=== PATIENT | male | born 1980 | race Caucasian/White ===

== ENCOUNTER 2016-07-21 13:27 | Emergency (ER) | payer OTHER ==
[2016-07-21 13:42] VITALS: TEMP 97.9
[2016-07-21 14:38] VITALS: RESP 18
[2016-07-21 14:42] LABS: Basophils # (A) 0.1 k/uL (0-0.2); Basophils % (A) 1 %; CH 30.2; CHCM 32.8; Eosinophils % (A) 0 %; HCT 50.2 % (39.0-53.0); HGB 16.4 gm/dL (13.0-17.5); Luc # (Auto) 0.07; Luc % (Auto) 1; Lymphocytes # (A) 0.7 k/uL (1.0-4.8); Lymphocytes % (A) 8 %; MCH 30.2 pg (25.0-35.0); MCHC 32.7 g/dL (31.0-37.0); MCV 92.4 fL (80.0-100.0); Mean Platelet Volume 9.1; Monocytes # (A) 0.4 k/uL (0-1.0); Monocytes % (A) 4 %; Neutrophils # (A) 8.3 k/uL (1.3-7.7); Neutrophils % (A) 87 %; RBC 5.44 m/uL (4.30-5.90); RDW 13.1 % (11.5-15.5); WBC 9.5 k/uL (3.8-10.6)
[2016-07-21 14:52] LABS: ALT 54 U/L (21-72); AST 42 U/L (17-59); Alkaline Phosphatase 58 U/L (38-126); Anion Gap 15 mmol/L; Blood Urea Nitrogen 20 mg/dL (9-20); Calcium 9.1 mg/dL (8.4-10.2); Carbon Dioxide 23 mmol/L (22-30); Chloride 102 mmol/L (98-107); Glucose 264 mg/dL (74-99); Non-African American GFR(MDRD) >60 (>60 ml/min/1.73 sqM); Potassium 4.5 mmol/L (3.5-5.1); Sodium 140 mmol/L (137-145); Total Bilirubin 0.7 mg/dL (0.2-1.3); Total Protein 7.2 g/dL (6.3-8.2)
[2016-07-21 15:05] LABS: Creatine Kinase MB 3.7 ng/mL (0.0-2.4)
--- NOTE | 2016-07-21 15:06 | ED ---
Overdose HPI - General Chief Complaint: Overdose Stated Complaint: overdose Time Seen by Provider: 07/21/16 13:37 Source: patient, EMS Mode of arrival: EMS Limitations: no limitations - History of Present Illness Initial Comments: He injected some heroin today, he also stated that he did some fentanyl, he said he injected back he admits to doing street drugs quite regularly. He said he need some maintenance medications to avoid the withdrawals almost a daily basis he said he was in the kitchen when he felt quite tired is not sure if he passed out according to the EMS his dad gave him some Narcan he denies any injury to his head to his neck or upper or lower extremity or to the back. Denies any headaches no blurred vision no chest pain or shortness of breath no abdominal pain no frequency urgency dysuria, he denies any suicidal or homicidal ideation - Related Data Home Medications Medication Instructions Recorded Confirmed No Known Home Medications [No 02/13/16 07/21/16 Known Home Medications] Allergies Allergy/AdvReac Type Severity Reaction Status Date / Time No Known Allergies Allergy Verified 07/21/16 14:00 Review of Systems ROS Statement: Those systems with pertinent positive or pertinent negative responses have been documented in the HPI. ROS Other: All systems not noted in ROS Statement are negative. Past Medical History Past Medical History: Eye Disorder, Musculoskeletal Disorder Additional Past Medical History / Comment(s): BULGING DISC CERVICAL AREA, CERVICAL PAIN, MILD NT IN HANDS - DAYANA LT., GLASSES TO DRIVE ONLY History of Any Multi-Drug Resistant Organisms: MRSA Date of last positivie culture/infection: 2011 MDRO Source:: RIGHT KNEE Past Surgical History: Orthopedic Surgery Additional Past Surgical History / Comment(s): COSMETIC JAW SURG. Rt Knee SURG D/T MRSA INFECTION. PAIN CLINIC PROC.LAST ONE 05/03/15 Past Anesthesia/Blood Transfusion Reactions: No Reported Reaction, Family History of Problems w/ Anesthesia Additional Past Anesthesia/Blood Transfusion Reaction / Comment(s): MOTHER HAD SOME PROB, AWAKE DURING DENTAL PROC. Past Psychological History: No Psychological Hx Reported Smoking Status: Never smoker Past Alcohol Use History: None Reported Past Drug Use History: Heroin, Prescription Drug Abuse - Past Family History Mother Family Medical History: Hypertension Additional Family Medical History / Comment(s): CROHN'S DISEASE, BIPOLAR Father Family Medical History: Osteoarthritis (OA) Additional Family Medical History / Comment(s): HEART PROBLEMS, HEMOCHROMATOSIS General Exam - General Exam Comments Initial Comments: General: The patient is awake and alert, in no distress, and does not appear acutely ill. Skin: Skin is warm and dry and no rashes or lesions are noted. Eye: Pupils are equal, round and reactive to light, both his pupils are quite small. Ears, nose, mouth and throat: There are moist mucous membranes and no oral lesions. Neck: The neck is supple, there is no tenderness along the cervical spine, palpation of the scalp did not reveal any hematoma or any laceration or any ecchymosis Cardiovascular: There is a regular rate and rhythm. No murmur, rub or gallop is appreciated. Respiratory: To auscultation bilateral, no wheezing no rhonchi no distress respiratory mohan noticed Gastrointestinal: Soft, non-distended, non-tender abdomen without masses or organomegaly noted. There is no rebound or guarding present. Bowel sounds are unremarkable. Back: There is no tenderness to palpation in the midline. There is no obvious deformity. Musculoskeletal: Normal ROM, no tenderness, There is no pedal edema. There is no calf tenderness or swelling. No cords were appreciated. Neurological: CN II-XII intact, Cranial nerves III through XII are intact. There are no obvious motor or sensory deficits. Coordination appears grossly intact. Speech is normal. Psychiatric: Cooperative, appropriate mood & affect, normal judgment, he denies any suicidal or homicidal ideation. Limitations: no limitations Course Vital Signs 07/21/16 07/21/16 13:35 14:36 Temperature 97.9 F Pulse Rate 103 H 93 Respiratory 20 18 Rate Blood Pressure 155/63 123/63 O2 Sat by Pulse 100 99 Oximetry MG is normal sinus rhythm ventricular rate is 94 [place] interval is 158 QRS duration is 92 QT/QTc is 350/437 FC EKG reveals T-wave flattening in lead [address] elevation or ST depression noticed the rest of the leads Admitting him with the family his dad was in coma and now we discussed in length with that he needs to see some addiction services his dad said he is alone is all lined up with the counselor and he is working on it he had a rehab program once in the recent past, education and counseling was done about the disadvantages of drugs and they're risk as far as hepatitis BEC and other other diseases ARE, NOTICED HIS ELEVATED CREATININE AND ELEVATED SUGAR SPOKE WITH HIM AND HIS FAMILY THAT HE NEEDS TO FOLLOW-UP WITH HIS FAMILY DOCTOR TO MAKE SURE his diabetes status and is a kidney functions are checked regularly Medical Decision Making - Lab Data Result diagrams: 07/21/16 13:52 07/21/16 13:52 Lab Results 07/21/16 07/21/16 07/21/16 Range/Units 13:52 13:52 13:52 WBC 9.5 (3.8-10.6) k/uL RBC 5.44 (4.30-5.90) m/uL Hgb 16.4 (13.0-17.5) gm/dL Hct 50.2 (39.0-53.0) % MCV 92.4 (80.0-100.0) fL MCH 30.2 (25.0-35.0) pg MCHC 32.7 (31.0-37.0) g/dL RDW 13.1 (11.5-15.5) % Plt Count 218 (150-450) k/uL Neutrophils % 87 % Lymphocytes % 8 % Monocytes % 4 % Eosinophils % 0 % Basophils % 1 % Neutrophils # 8.3 H (1.3-7.7) k/uL Lymphocytes # 0.7 L (1.0-4.8) k/uL Monocytes # 0.4 (0-1.0) k/uL Eosinophils # 0.0 (0-0.7) k/uL Basophils # 0.1 (0-0.2) k/uL Sodium 140 (137-145) mmol/L Potassium 4.5 (3.5-5.1) mmol/L Chloride 102 (98-107) mmol/L Carbon Dioxide 23 (22-30) mmol/L Anion Gap 15 mmol/L BUN 20 (9-20) mg/dL Creatinine 1.34 H (0.66-1.25) mg/dL Est GFR (MDRD) Af Amer >60 (>60 ml/min/1.73 sqM) Est GFR (MDRD) Non-Af >60 (>60 ml/min/1.73 sqM) Glucose 264 H (74-99) mg/dL Calcium 9.1 (8.4-10.2) mg/dL Total Bilirubin 0.7 (0.2-1.3) mg/dL AST 42 (17-59) U/L ALT 54 (21-72) U/L Alkaline Phosphatase 58 (38-126) U/L Total Creatine Kinase (55-170) U/L CK-MB (CK-2) (0.0-2.4) ng/mL CK-MB (CK-2) Rel Index Total Protein 7.2 (6.3-8.2) g/dL Albumin 4.4 (3.5-5.0) g/dL Urine Opiates Screen Detected H (NotDetected) Ur Oxycodone Screen Not Detected (NotDetected) Urine Methadone Screen Not Detected (NotDetected) Ur Propoxyphene Screen Not Detected (NotDetected) Ur Barbiturates Screen Not Detected (NotDetected) U Tricyclic Antidepress Not Detected (NotDetected) Ur Phencyclidine Scrn Not Detected (NotDetected) Ur Amphetamines Screen Not Detected (NotDetected) U Methamphetamines Scrn Not Detected (NotDetected) U Benzodiazepines Scrn Not Detected (NotDetected) Urine Cocaine Screen Not Detected (NotDetected) U Marijuana (THC) Screen Not Detected (NotDetected) 07/21/16 Range/Units 13:52 WBC (3.8-10.6) k/uL RBC (4.30-5.90) m/uL Hgb (13.0-17.5) gm/dL Hct (39.0-53.0) % MCV (80.0-100.0) fL MCH (25.0-35.0) pg MCHC (31.0-37.0) g/dL RDW (11.5-15.5) % Plt Count (150-450) k/uL Neutrophils % % Lymphocytes % % Monocytes % % Eosinophils % % Basophils % % Neutrophils # (1.3-7.7) k/uL Lymphocytes # (1.0-4.8) k/uL Monocytes # (0-1.0) k/uL Eosinophils # (0-0.7) k/uL Basophils # (0-0.2) k/uL Sodium (137-145) mmol/L Potassium (3.5-5.1) mmol/L Chloride (98-107) mmol/L Carbon Dioxide (22-30) mmol/L Anion Gap mmol/L BUN (9-20) mg/dL Creatinine (0.66-1.25) mg/dL Est GFR (MDRD) Af Amer (>60 ml/min/1.73 sqM) Est GFR (MDRD) Non-Af (>60 ml/min/1.73 sqM) Glucose (74-99) mg/dL Calcium (8.4-10.2) mg/dL Total Bilirubin (0.2-1.3) mg/dL AST (17-59) U/L ALT (21-72) U/L Alkaline Phosphatase (38-126) U/L Total Creatine Kinase 759 H (55-170) U/L CK-MB (CK-2) 3.7 H* (0.0-2.4) ng/mL CK-MB (CK-2) Rel Index 0.5 Total Protein (6.3-8.2) g/dL Albumin (3.5-5.0) g/dL Urine Opiates Screen (NotDetected) Ur Oxycodone Screen (NotDetected) Urine Methadone Screen (NotDetected) Ur Propoxyphene Screen (NotDetected) Ur Barbiturates Screen (NotDetected) U Tricyclic Antidepress (NotDetected) Ur Phencyclidine Scrn (NotDetected) Ur Amphetamines Screen (NotDetected) U Methamphetamines Scrn (NotDetected) U Benzodiazepines Scrn (NotDetected) Urine Cocaine Screen (NotDetected) U Marijuana (THC) Screen (NotDetected) Disposition Clinical Impression: Drug overdose, Recreational drug use Disposition: HOME SELF-CARE Condition: Good Instructions: Adult Overdose (ED) Referrals: Je Bright DO [Primary Care Provider] - 1-2 days
[2016-07-21] MEDS ORDERED: SODIUM CHLORIDE 0.9% 1,000 ML IV STA (15:10)
[2016-07-21 15:45] VITALS: BP 119/79; PULSE 90
== END 2016-07-21 15:45 | disposition home or self-care (01) ==
LOC: EC 13:27
DX: T40.1X1A Poisoning by heroin, accidental (unintentional), initial encounter (principal); T40.4X1A Poisoning by other synthetic narcotics, accidental (unintentional), initial encounter; R40.20 Unspecified coma
CPT/HCPCS: 36415; 80053; 80306; 82550; 82553; 85025; 93005; 99284